=== PATIENT | male | born 1945 | race African-American/Black ===

== ENCOUNTER 2017-01-11 04:38 | Day surgery (SDC) | payer MEDICARE, OTHER ==
[~2017-01-11 04:38] MED LIST: ADVIL PO; ASA5GR PO; ASAB PO; BEE POLLEN PO; BENTYL10 PO; C5 PO; COREG3 PO; COUMADIN7.5 MG PO; FISH-EPA1000 MG PO; GLUCPH PO; IMOD PO; LISINOPRIL PO; LISINOPRIL40 MG PO; LORTAB10 PO; MULTIVITAMI1 PO; NEXIUM40 PO; NICODERM C7 MG/24 HR TOP; NORV25 PO; OSTEO BI-FLEX1 EACH PO; QUESTRAN4 GM PO; SKELAXIN8 PO; SPIRIVA INH; T PO; TRILIPIX135 MG PO; VENTOLIN HFA INH; Z100 PO; ZOCOR40 PO
[2017-05-24] MEDS ORDERED: IBU400 PO (10:00)
== END 2017-01-11 14:41 | disposition home or self-care (01) ==
LOC: SDC 04:38
PROVIDERS: Orthopaedic Surgery
PROC: 3E0S3BZ Introduction of Anesthetic Agent into Epidural Space, Percutaneous Approach (ICD-10-PCS; 2017-01-11)
PROC: 3E0S33Z Introduction of Anti-inflammatory into Epidural Space, Percutaneous Approach (ICD-10-PCS; principal; 2017-01-11 07:30)
DX: M54.16 Radiculopathy, lumbar region (principal); M54.5 Low back pain; Z90.49 Acquired absence of other specified parts of digestive tract; E11.9 Type 2 diabetes mellitus without complications; M10.9 Gout, unspecified; Z98.41 Cataract extraction status, right eye; Z98.42 Cataract extraction status, left eye; Z96.1 Presence of intraocular lens; J44.9 Chronic obstructive pulmonary disease, unspecified; Z98.890 Other specified postprocedural states; Z79.899 Other long term (current) drug therapy
CPT/HCPCS: 82962; J1040; J2250; J3010; Q9967